=== PATIENT | male | born 1985 | race American Indian/Alaskan Native ===

== ENCOUNTER 2017-02-28 08:38 | Emergency (ER) | payer SELFPAY ==
--- NOTE | 2017-02-28 08:52 | EDM.PDOC ---
ED HPI GENERAL MEDICAL PROBLEM - General Chief Complaint: General Stated Complaint: HEMMORIODS Time Seen by Provider: 02/28/17 08:52 Source of Information: Reports: Patient, RN, RN Notes Reviewed History Limitations: Reports: No Limitations - History of Present Illness INITIAL COMMENTS - FREE TEXT/NARRATIVE: Pt presents to ER with c/o severe hemorrhoids that began bothering him yesterday. He states he lifted a couch the other day. He rates the pain a 10/10 and states he cannot have a bowel movement due to the pain. He denies fever and chills, or any other problems at this time. Onset: Gradual Duration: Getting Worse Location: Reports: Other Quality: Reports: Burning, Stabbing Severity: Severe Improves with: Reports: None Worsens with: Reports: Movement Associated Symptoms: Reports: No Other Symptoms Rectal Pain Score (Numeric/FACES): 9 - Related Data Allergies Allergy/AdvReac Type Severity Reaction Status Date / Time amoxicillin Allergy Hives Verified 07/25/15 09:59 Home Meds: Home Meds Ibuprofen 400 mg PO ASDIRECTED PRN 07/25/15 [History] Past Medical History - Past Health History Medical/Surgical History: Denies Medical/Surgical History HEENT History: Reports: None Cardiovascular History: Reports: None Respiratory History: Reports: None Gastrointestinal History: Reports: GERD Genitourinary History: Reports: None Other Musculoskeletal History: accident with neck pain Neurological History: Reports: None Psychiatric History: Reports: Addiction (alcoholism) Endocrine/Metabolic History: Reports: None Hematologic History: Reports: None Immunologic History: Reports: None Oncologic (Cancer) History: Reports: None Dermatologic History: Reports: None - Infectious Disease History Infectious Disease History: Reports: Chicken Pox - Past Surgical History Head Surgeries/Procedures: Reports: None Social & Family History - Family History Cardiac: Reports: CAD, Hypertension Psychiatric: Reports: Other (See Below) Endocrine/Metabolic: Reports: Diabetes, type II - Tobacco Use Smoking Status *Q: Current Every Day Smoker Years of Tobacco use: 12 Packs/Tins Daily: 0.5 Second Hand Smoke Exposure: No - Caffeine Use Caffeine Use: Reports: Soda - Alcohol Use Days Per Week of Alcohol Use: 7 (rare) Number of Drinks Per Day: 10 (750mls/day) Total Drinks Per Week: 70 - Recreational Drug Use Recreational Drug Use: Yes Drug Use in Last 12 Months: Yes Recreational Drug Type: Reports: Marijuana/Hashish Recreational Drug Use Frequency: Rarely - Living Situation & Occupation Living situation: Reports: , with Family Occupation: Unemployed ED ROS GENERAL - Review of Systems Review Of Systems: ROS reveals no pertinent complaints other than HPI. ED EXAM, GENERAL - Physical Exam Exam: See Below Exam Limited By: No Limitations General Appearance: Alert, WD/WN, Anxious, Moderate Distress Eye Exam: Bilateral Eye: Normal Inspection Ears: Normal External Exam, Hearing Grossly Normal Nose: Normal Inspection Throat/Mouth: Normal Inspection Head: Atraumatic, Normocephalic Neck: Normal Inspection, Full Range of Motion Respiratory/Chest: No Respiratory Distress, Lungs Clear, Normal Breath Sounds, No Accessory Muscle Use, Chest Non-Tender Cardiovascular: Normal Peripheral Pulses, Regular Rate, Rhythm, No Edema, No Gallop, No JVD, No Murmur, No Rub Peripheral Pulses: 2+: Radial (L), Radial (R) GI/Abdominal: Normal Bowel Sounds, Soft, Non-Tender (Male) Exam: Deferred Rectal (Males) Exam: Hemorrhoids (Severe protruding hemorrhoids with the beginning of ulceration with white drainage) Back Exam: Normal Inspection, Full Range of Motion Extremities: Normal Inspection, Normal Range of Motion, Normal Capillary Refill Neurological: Alert, Oriented, Normal Cognition, Normal Gait, No Motor/Sensory Deficits Psychiatric: Normal Affect, Normal Mood Skin Exam: Warm, Dry, Intact, Normal Color, No Rash Lymphatic: No Adenopathy Course - Vital Signs Last Recorded V/S: Last Vital Signs Temp 98.7 F 02/28/17 08:40 Pulse 88 02/28/17 08:40 Resp 16 02/28/17 08:40 BP 145/92 H 02/28/17 08:40 Pulse Ox 99 02/28/17 08:40 - Orders/Labs/Meds Meds: Medications Discontinued Medications Generic Name Dose Route Start Last Admin Trade Name Freq PRN Reason Stop Dose Admin Lidocaine HCl 5 ml 02/28/17 09:02 02/28/17 09:12 Xylocaine 2% Jelly TOP 02/28/17 09:03 5 ml ONETIME ONE Administration Departure - Departure Time of Disposition: 09:18 Disposition: Home, Self-Care 01 Condition: Good Clinical Impression: Hemorrhage - Discharge Information Instructions: Hemorrhoids, [id number] Forms: ED Department Discharge Additional Instructions: Over the counter Hemorrhoid pads (Tucks medicated pads), use after each bowel movement. Preparation H ointment as directed. Sitz baths frequently. Stool softeners as directed. Follow up with your primary care facility for possible surgical consult. Lidocaine 2% topical jelly to the affected area every 6 hours Drink lots of water
[2017-02-28 08:56] VITALS: BP 145/92
[2017-02-28] MEDS ORDERED: Lidocaine 2% Jelly 5 ML Tube TOP ONE (09:02)
== END 2017-02-28 09:34 | disposition home or self-care (01) ==
LOC: DL.ED 08:38
DX: K64.8 Other hemorrhoids (principal); Z88.1 Allergy status to other antibiotic agents; F17.210 Nicotine dependence, cigarettes, uncomplicated
CPT/HCPCS: 99282

== ENCOUNTER 2017-08-04 12:55 | Observation (INO) | payer MEDICAID, OTHER ==
[2017-08-04] MEDS ORDERED: LORazepam 2 MG/ML Syringe IVPUSH ONE (13:15)
[2017-08-04] MEDS ORDERED: MVI, Adult with Vitamin K 10 ML, Folic Acid 1 MG, Thiamine 100 MG in Lactated Ringers 1... IV ONE ×4 (13:15)
[2017-08-04 13:56] LABS: CHLORIDE,CL 106 mmol/L (101-111); SODIUM,NA 139 mmol/L (135-145)
--- NOTE | 2017-08-04 14:09 | EDM.PDOCBH ---
ED HPI GENERAL MEDICAL PROBLEM - General Chief Complaint: Drug or Alcohol Abuse Stated Complaint: BY AMBULANCE Time Seen by Provider: 08/04/17 13:09 Source of Information: Reports: Patient, RN, RN Notes Reviewed History Limitations: Reports: No Limitations - History of Present Illness INITIAL COMMENTS - FREE TEXT/NARRATIVE: Patient presents to ER per [facility]. Patient states he last had a drink last night 6-7 P.M. Drinks 2 gallons vodka in 1 day. Wants help to get treatment. No hallucinations. Admits to blood with stools. No bloody vomit. Quality: Reports: Ache Severity: Moderate Improves with: Reports: None Worsens with: Reports: None Associated Symptoms: Reports: No Other Symptoms Headache Pain Score (Numeric/FACES): 10 - Related Data Allergies Allergy/AdvReac Type Severity Reaction Status Date / Time amoxicillin Allergy Severe Hives Verified 08/04/17 14:48 Home Meds: Home Meds Ibuprofen 400 mg PO ASDIRECTED PRN 07/25/15 [History] Past Medical History - Past Health History Medical/Surgical History: Denies Medical/Surgical History HEENT History: Reports: None Cardiovascular History: Reports: None Respiratory History: Reports: None Gastrointestinal History: Reports: GERD Genitourinary History: Reports: None Musculoskeletal History: Reports: Other (See Below) Other Musculoskeletal History: accident with neck pain Neurological History: Reports: None Psychiatric History: Reports: Addiction, Anxiety Endocrine/Metabolic History: Reports: None Hematologic History: Reports: None Immunologic History: Reports: None Oncologic (Cancer) History: Reports: None Dermatologic History: Reports: None - Infectious Disease History Infectious Disease History: Reports: Chicken Pox - Past Surgical History Head Surgeries/Procedures: Reports: None Social & Family History - Family History Cardiac: Reports: CAD, Hypertension Psychiatric: Reports: Other (See Below) Endocrine/Metabolic: Reports: Diabetes, type II - Tobacco Use Smoking Status *Q: Light Tobacco Smoker Years of Tobacco use: 10 Packs/Tins Daily: 1 Second Hand Smoke Exposure: No - Caffeine Use Caffeine Use: Reports: Soda - Alcohol Use Days Per Week of Alcohol Use: 7 (rare) Number of Drinks Per Day: 10 (750mls/day) Total Drinks Per Week: 70 - Recreational Drug Use Recreational Drug Use: Yes Drug Use in Last 12 Months: Yes Recreational Drug Type: Reports: Marijuana/Hashish Recreational Drug Use Frequency: Socially - Living Situation & Occupation Living situation: Reports: , with Family Occupation: Unemployed ED ROS GENERAL - Review of Systems Review Of Systems: ROS reveals no pertinent complaints other than HPI. ED EXAM, BEHAVIORAL HEALTH - Physical Exam Exam: See Below Exam Limited By: No Limitations General Appearance: Anxious, Other (Shaky) Eye Exam: Bilateral Eye: Normal Inspection Ears: Normal External Exam, Normal Canal, Hearing Grossly Normal, Normal TMs Nose: Normal Inspection, Normal Mucosa, No Blood Throat/Mouth: Normal Inspection, Normal Lips, Normal Teeth, Normal Gums, Normal Oropharynx, Normal Voice, No Airway Compromise Head: Atraumatic, Normocephalic Neck: Normal Inspection, Supple, Non-Tender, Full Range of Motion Respiratory/Chest: No Respiratory Distress, Lungs Clear, Normal Breath Sounds, No Accessory Muscle Use, Chest Non-Tender Cardiovascular: Normal Peripheral Pulses, Regular Rate, Rhythm, No Edema, No Gallop, No JVD, No Murmur, No Rub GI/Abdominal: Normal Bowel Sounds, Soft, Non-Tender, No Organomegaly, No Distention, No Abnormal Bruit, No Mass (Male) Exam: Deferred Rectal (Males) Exam: Deferred Back Exam: Normal Inspection, Full Range of Motion, NT Extremities: Normal Inspection, Normal Range of Motion, Non-Tender, Normal Capillary Refill, No Pedal Edema Neurological: Alert, Normal Mood/Affect, CN II-XII Intact, Normal Cognition, Normal Gait, Normal Reflexes, No Motor/Sensory Deficits, Oriented x 3 Psychiatric: Other (anxious and shakey) Skin Exam: Warm, Dry, Intact, Normal color, No rash COURSE, BEHAVIORAL HEALTH COMP - Course Vital Signs: Last Vital Signs Temp 98.6 F 08/05/17 08:00 Pulse 87 08/05/17 08:22 Resp 20 08/05/17 08:00 BP 137/93 H 08/05/17 08:22 Pulse Ox 99 08/05/17 08:00 Orders, Labs, Meds: Active Orders 24 hr Category Date Time Status Patient Status [ADT] Routine ADT 08/04/17 14:26 Active Oxygen Therapy [RC] PRN Care 08/04/17 14:26 Active Up ad Mabel [RC] ASDIRECTED Care 08/04/17 14:25 Active VTE/DVT Education [RC] PER UNIT ROUTINE Care 08/04/17 14:26 Active Regular Diet [DIET] Diet 08/04/17 Lunch Active Ondansetron [Zofran] Med 08/04/17 14:25 Active 4 mg IVPUSH Q6H PRN Pantoprazole [ProTONIX IV] Med 08/04/17 15:15 Active 40 mg IVPUSH Q12HR Resuscitation Status Routine Resus Stat 08/04/17 14:25 Ordered Medication Orders Atenolol (Tenormin) 25 mg PO DAILY [facility] Last Admin: 08/05/17 08:22 Dose: 25 mg Admin: 08/04/17 17:57 Dose: 25 mg Enoxaparin Sodium (Lovenox) 40 mg SUBCUT DAILY [facility] Last Admin: 08/05/17 11:35 Dose: 40 mg Potassium Chloride/Sodium Chloride (Normal Saline With 20 Meq Kcl) 1,000 mls @ 100 mls/hr IV ASDIRECTED JEFF Lorazepam (Ativan) 2 mg IVPUSH ASDIRECTED PRN; Protocol PRN Reason: Withdrawal Symptoms Last Admin: 08/05/17 11:44 Dose: 1 mg Admin: 08/05/17 08:22 Dose: 2 mg Admin: 08/05/17 04:36 Dose: 1 mg Admin: 08/05/17 02:17 Dose: 1 mg Admin: 08/04/17 23:41 Dose: 1 mg Admin: 08/04/17 22:05 Dose: 1 mg Admin: 08/04/17 18:27 Dose: 2 mg Admin: 08/04/17 17:28 Dose: 2 mg Admin: 08/04/17 15:53 Dose: 1 mg Miscellaneous Information (Check Patch) 1 ea TRDERM DAILY [facility] Last Admin: 08/05/17 08:23 Dose: 1 ea Nicotine (Habitrol) 21 mg TRDERM DAILY [facility] Last Admin: 08/05/17 08:21 Dose: 21 mg Ondansetron HCl (Zofran) 4 mg IVPUSH Q6H PRN PRN Reason: Nausea/Vomiting Oxycodone HCl (Oxycodone) 5 mg PO Q8H PRN PRN Reason: Pain Last Admin: 08/04/17 15:38 Dose: 5 mg Pantoprazole Sodium (Protonix Iv) 40 mg IVPUSH Q12HR [facility] Last Admin: 08/05/17 08:22 Dose: 40 mg Admin: 08/04/17 21:30 Dose: 40 mg Admin: 08/04/17 15:38 Dose: 40 mg Laboratory Tests 08/04/17 08/04/17 08/04/17 Range/Units 13:27 13:27 13:29 WBC 4.3 L (5.0-10.0) 10^3/uL RBC 4.96 (4.6-6.2) 10^6/uL Hgb 14.9 D (14.0-18.0) g/dL Hct 43.7 (40.0-54.0) % MCV 88.1 D (80-100) fL MCH 30.0 (27.0-34.0) pg MCHC 34.1 (33.0-35.0) g/dL Plt Count 168 (150-450) 10^3/uL Neut % (Auto) 70.5 (42.2-75.2) % Lymph % (Auto) 15.0 L (20.5-50.1) % Norman % (Auto) 12.4 H (2-8) % Eos % (Auto) 1.4 (1.0-3.0) % Baso % (Auto) 0.7 (0.0-1.0) % Sodium (135-145) mmol/L Potassium (3.6-5.0) mmol/L Chloride (101-111) mmol/L Carbon Dioxide (21.0-31.0) mmol/L Anion Gap BUN (7-18) mg/dL Creatinine (0.6-1.3) mg/dL Est Cr Clr Drug Dosing mL/min Estimated GFR (MDRD) BUN/Creatinine Ratio Glucose (74-105) mg/dL Calcium (8.4-10.2) mg/dl Magnesium (1.8-2.5) mg/dL Total Bilirubin (0.2-1.0) mg/dL AST (10-42) IU/L ALT (10-60) IU/L Alkaline Phosphatase (42-121) IU/L Total Protein (6.7-8.2) g/dl Albumin (3.2-5.5) g/dl Globulin Albumin/Globulin Ratio Amylase (28-100) U/L Lipase (22-51) U/L Urine Color Blossom (YELLOW) Urine Appearance Slightly cloudy (CLEAR) Urine pH 6.0 (5.0-9.0) Ur Specific [place] 1.025 (1.005-1.030) Urine Protein 100 H (NEGATIVE) Urine Glucose (UA) Negative (NEGATIVE) Urine Ketones 80 H (NEGATIVE) Urine Occult Blood Negative (NEGATIVE) Urine Nitrite Negative (NEGATIVE) Urine Bilirubin Small H (NEGATIVE) Urine Urobilinogen 0.2 (0.2-1.0) mg/dL Ur Leukocyte Esterase Negative (NEGATIVE) Urine RBC Not seen /HPF Urine WBC 0-5 (0-5/HPF) /HPF Ur Epithelial Cells Rare /HPF Urine Bacteria Not seen (0-FEW/HPF) /HPF Urine Mucus Many H /LPF Urine Opiates Screen Negative (NEGATIVE) Ur Oxycodone Screen Negative (NEGATIVE) Urine Methadone Screen Negative (NEGATIVE) Ur Barbiturates Screen Negative (NEGATIVE) U Tricyclic Antidepress Negative (NEGATIVE) Ur Phencyclidine Scrn Negative (NEGATIVE) Ur Amphetamine Screen Negative (NEGATIVE) U Methamphetamines Scrn Negative (NEGATIVE) Urine MDMA Screen Negative (NEGATIVE) U Benzodiazepines Scrn Negative (NEGATIVE) Urine Cocaine Screen Negative (NEGATIVE) U Marijuana (THC) Screen Positive H (NEGATIVE) Ethyl Alcohol mg/dL 08/04/17 Range/Units 13:29 WBC (5.0-10.0) 10^3/uL RBC (4.6-6.2) 10^6/uL Hgb (14.0-18.0) g/dL Hct (40.0-54.0) % MCV (80-100) fL MCH (27.0-34.0) pg MCHC (33.0-35.0) g/dL Plt Count (150-450) 10^3/uL Neut % (Auto) (42.2-75.2) % Lymph % (Auto) (20.5-50.1) % Norman % (Auto) (2-8) % Eos % (Auto) (1.0-3.0) % Baso % (Auto) (0.0-1.0) % Sodium 139 (135-145) mmol/L Potassium 3.4 L (3.6-5.0) mmol/L Chloride 106 (101-111) mmol/L Carbon Dioxide 20.0 L (21.0-31.0) mmol/L Anion Gap 16.4 BUN 9 (7-18) mg/dL Creatinine 0.8 (0.6-1.3) mg/dL Est Cr Clr Drug Dosing 152.70 mL/min Estimated GFR (MDRD) > 60 BUN/Creatinine Ratio 11.25 Glucose 98 (74-105) mg/dL Calcium 8.6 (8.4-10.2) mg/dl Magnesium 1.5 L (1.8-2.5) mg/dL Total Bilirubin 0.8 (0.2-1.0) mg/dL AST 157 H (10-42) IU/L ALT 116 H (10-60) IU/L Alkaline Phosphatase 59 (42-121) IU/L Total Protein 7.6 (6.7-8.2) g/dl Albumin 4.0 (3.2-5.5) g/dl Globulin 3.6 Albumin/Globulin Ratio 1.11 Amylase 46 (28-100) U/L Lipase 17 L (22-51) U/L Urine Color (YELLOW) Urine Appearance (CLEAR) Urine pH (5.0-9.0) Ur Specific Mills (1.005-1.030) Urine Protein (NEGATIVE) Urine Glucose (UA) (NEGATIVE) Urine Ketones (NEGATIVE) Urine Occult Blood (NEGATIVE) Urine Nitrite (NEGATIVE) Urine Bilirubin (NEGATIVE) Urine Urobilinogen (0.2-1.0) mg/dL Ur Leukocyte Esterase (NEGATIVE) Urine RBC /HPF Urine WBC (0-5/HPF) /HPF Ur Epithelial Cells /HPF Urine Bacteria (0-FEW/HPF) /HPF Urine Mucus /LPF Urine Opiates Screen (NEGATIVE) Ur Oxycodone Screen (NEGATIVE) Urine Methadone Screen (NEGATIVE) Ur Barbiturates Screen (NEGATIVE) U Tricyclic Antidepress (NEGATIVE) Ur Phencyclidine Scrn (NEGATIVE) Ur Amphetamine Screen (NEGATIVE) U Methamphetamines Scrn (NEGATIVE) Urine MDMA Screen (NEGATIVE) U Benzodiazepines Scrn (NEGATIVE) Urine Cocaine Screen (NEGATIVE) U Marijuana (THC) Screen (NEGATIVE) Ethyl Alcohol 55 mg/dL Medications Generic Name Dose Route Start Last Admin Trade Name Freq PRN Reason Stop Dose Admin Atenolol 25 mg 08/04/17 16:00 08/05/17 08:22 Tenormin PO 25 mg DAILY JEFF Administration Enoxaparin Sodium 40 mg 08/05/17 10:00 08/05/17 11:35 Lovenox SUBCUT 40 mg DAILY JEFF Administration Potassium Chloride/Sodium Chloride 1,000 mls @ 100 mls/hr 08/05/17 10:00 Normal Saline With 20 Meq Kcl IV ASDIRECTED JEFF Lorazepam 2 mg 08/04/17 15:03 08/05/17 11:44 Ativan IVPUSH 1 mg ASDIRECTED PRN Administration Withdrawal Symptoms Protocol Miscellaneous Information 1 ea 08/05/17 09:00 08/05/17 08:23 Check Patch TRDERM 1 ea DAILY JEFF Administration Nicotine 21 mg 08/05/17 09:00 08/05/17 08:21 Habitrol TRDERM 21 mg DAILY JEFF Administration Ondansetron HCl 4 mg 08/04/17 14:25 Zofran IVPUSH Q6H PRN Nausea/Vomiting Oxycodone HCl 5 mg 08/04/17 15:01 08/04/17 15:38 Oxycodone PO 5 mg Q8H PRN Administration Pain Pantoprazole Sodium 40 mg 08/04/17 15:15 08/05/17 08:22 Protonix Iv IVPUSH 40 mg Q12HR JEFF Administration Discontinued Medications Generic Name Dose Route Start Last Admin Trade Name Freq PRN Reason Stop Dose Admin Multivitamins/Minerals 10 ml/ 1,011.2 mls @ 999 mls/hr 08/04/17 13:15 13:38 Folic Acid 1 mg/ Thiamine HCl IV 08/04/17 14:15 999 mls/hr 100 mg/ Lactated Ringer's ONETIME ONE Administration Sodium Chloride 1,000 mls @ 125 mls/hr 08/04/17 14:30 08/05/17 09:32 Normal Saline IV 100 mls/hr ASDIRECTED JEFF Infusion Magnesium Sulfate 2 gm/ Premix 50 mls @ 25 mls/hr 08/04/17 17:31 08/04/17 17: 58 IV 08/04/17 19:30 25 mls/hr ONETIME ONE Administration Potassium Chloride 20 meq/ 100 mls @ 50 mls/hr 08/04/17 17:31 08/04/17 23:50 Premix IV 08/04/17 19:30 Not Given ONETIME ONE Potassium Chloride 10 meq/ 0 mls @ 100 mls/hr 08/04/17 17:37 08/04/17 23:06 Premix IV 08/04/17 18:38 Not Given Q1H JEFF Potassium Chloride 10 meq/ 100 mls @ 100 mls/hr 08/04/17 23:00 08/05/17 00:50 Premix IV 08/04/17 23:59 Infused ONETIME ONE Infusion Lorazepam 1 mg 08/04/17 13:15 08/04/17 13:36 Ativan IVPUSH 08/04/17 13:16 1 mg ONETIME ONE Administration Lorazepam 1 mg 08/04/17 14:32 Ativan IVPUSH Q2H PRN Tremors and anxiety Miscellaneous Information 1 ea 08/05/17 09:00 Check Patch TRDERM DAILY JEFF Miscellaneous Information 1 ea 08/04/17 21:00 08/04/17 21:52 Check Patch TRDERM 1 ea BEDTIME JEFF Administration Nicotine 21 mg 08/05/17 09:00 Habitrol TRDERM DAILY JEFF Nicotine 21 mg 08/04/17 21:00 08/04/17 21:46 Habitrol TRDERM 21 mg BEDTIME JEFF Administration Guiac Stool: NEGATIVE Departure - Departure Time of Disposition: 14:25 Disposition: Refer to Observation Condition: Fair Clinical Impression: Alcohol abuse Alcohol withdrawal Qualifiers: Complication of substance-induced condition: uncomplicated Qualified Code(s): F10.230 - Alcohol dependence with withdrawal, uncomplicated - Discharge Information
[2017-08-04] MEDS ORDERED: LORazepam 2 MG/ML Syringe IVPUSH PRN (14:32)
[2017-08-04] MEDS ORDERED: oxyCODONE 5 MG Tab PO PRN (15:01)
--- NOTE | 2017-08-04 15:35 | CT ---
Medical history: 32-year-old 230 pound "detoxing" (EtOH) male smoker with headache. Scan technique: Volume acquisition of data unenhanced CT scan of the head and brain obtained with pat ient lying supine on the Siemens multi slice scanner [place], [place]. All data archived in the PACS system for storage and study (bone/brain windows). Interpretation: Negative exam. No sign of new intracranial abnormality when compared to previous exam 11 November 2010. Uniformly thick bony calvarium without sign of skull fracture, underlying brain contusion or epidural /subdural hematoma. Symmetric white-white matter pattern with underlying mirror-image normal ventricular system. No focal areas of ischemic infarct or signs of acute intracerebral/intraventricular/subarachnoid bleed. Cerebellum and brainstem unremarkable. Physiologic midline pineal and symmetric choroid plexus calcif ications.
[2017-08-04] MEDS: Pantoprazole 40 MG Vial IVPUSH SCH ×2 (15:38→21:30)
[2017-08-04] MEDS: Sodium Chloride 0.9% 1,000 ML IV SCH ×2 (15:41→23:31)
[2017-08-04] MEDS: LORazepam 2 MG/ML Syringe IVPUSH PRN ×5 (15:53→23:41)
--- NOTE | 2017-08-04 17:28 | PCM.HP ---
H&P History of Present Illness - General Date of Service: 08/04/17 Admit Problem/Dx: Admission Diagnosis/Problem Admission Diagnosis/Problem Alcohol abuse with intoxication History Limitations: Reports: No Limitations - History of Present Illness Initial Comments - Free Text/Narative: The patient presented with complaint of tremors and anxiety. He is a chronic alcoholic for several years but recently increased the amount of alcohol intake. He drinks more than 2 gallons of vodka daily. He expresses intention to quit alcohol use. Indicates that he has had intermittent nausea. Also complained of vomiting and epigastric pain. No fever or chills right) no cough no wheezing. He does smoke. Denies illicit drug use. Last alcohol use was yesterday evening about 6 PM. His tremors started feel as after discontinuation of alcohol use Onset of Symptoms: Reports: Today Improves with: Reports: None Worsens with: Reports: None Associated Symptoms: Reports: Loss of Appetite, Malaise Headache Pain Score (Numeric/FACES): 10 - Related Data Allergies/Adverse Reactions: Allergies Allergy/AdvReac Type Severity Reaction Status Date / Time amoxicillin Allergy Severe Hives Verified 08/04/17 14:48 Home Medications: Home Meds Ibuprofen 400 mg PO ASDIRECTED PRN 07/25/15 [History] Past Medical History - Past Health History Medical/Surgical History: Denies Medical/Surgical History HEENT History: Reports: None Cardiovascular History: Reports: None Respiratory History: Reports: None Gastrointestinal History: Reports: GERD Genitourinary History: Reports: None Musculoskeletal History: Reports: Other (See Below) Other Musculoskeletal History: accident with neck pain Neurological History: Reports: None Psychiatric History: Reports: Addiction Endocrine/Metabolic History: Reports: None Hematologic History: Reports: None Immunologic History: Reports: None Oncologic (Cancer) History: Reports: None Dermatologic History: Reports: None - Infectious Disease History Infectious Disease History: Reports: C-Difficile - Past Surgical History Head Surgeries/Procedures: Reports: None Social & Family History - Family History Family Medical History: Noncontributory Cardiac: Reports: CAD, Hypertension Psychiatric: Reports: Other (See Below) Endocrine/Metabolic: Reports: Diabetes, type II - Tobacco Use Smoking Status *Q: Light Tobacco Smoker Years of Tobacco use: 18 Packs/Tins Daily: 2 Second Hand Smoke Exposure: No - Caffeine Use Caffeine Use: Reports: None - Alcohol Use Days Per Week of Alcohol Use: 7 Number of Drinks Per Day: 10 Total Drinks Per Week: 70 Date of Last Drink: 08/03/17 Time of Last Drink: 19:00 - Recreational Drug Use Recreational Drug Use: Yes Drug Use in Last 12 Months: Yes Recreational Drug Type: Reports: Marijuana/Hashish Recreational Drug Use Frequency: Daily - Living Situation & Occupation Living situation: Reports: , with Family Occupation: Unemployed H&P Review of Systems - Review of Systems: Review Of Systems: See Below General: Reports: No Symptoms, Weakness HEENT: Reports: No Symptoms Pulmonary: Reports: No Symptoms Cardiovascular: Reports: No Symptoms Gastrointestinal: Reports: Abdominal Pain Musculoskeletal: Reports: No Symptoms Skin: Reports: No Symptoms Psychiatric: Reports: Depression Neurological: Reports: No Symptoms Hematologic/Lymphatic: Reports: No Symptoms Exam - Exam Exam: See Below - Vital Signs Vital Signs: Last Vital Signs Temp 37.2 C 08/04/17 14:26 Pulse 78 08/04/17 14:26 Resp 18 08/04/17 14:26 BP 145/102 H 08/04/17 14:26 Pulse Ox 98 08/04/17 14:26 Weight: 104.689 kg - Exam General: Alert, Oriented, Cooperative HEENT: Conjunctiva Clear Neck: Supple Lungs: Clear to Auscultation Cardiovascular: Regular Rate, Normal S1, Normal S2 GI/Abdominal Exam: Soft, Tender (Male) Exam: No Hernia, Normal Inspection, Normal Prostate, Circumcised Back Exam: Normal Inspection, Full Range of Motion, NT Extremities: Normal Inspection, Normal Range of Motion, Non-Tender, No Pedal Edema, Normal Capillary Refill Neuro Extensive - Mental Status: Other (tremors ) - Patient Data Result Diagrams: 08/04/17 13:29 08/04/17 13:29 *Q Meaningful Use (ADM) - VTE *Q VTE Criteria *Q: - Stroke *Q Stroke Criteria *Q: - AMI *Q AMI Criteria *Q: Problem List Initiated/Reviewed/Updated: Yes Orders Last 24hrs: Active Orders 24 hr Category Date Time Status CIWAA Assessment [RC] Q1H Care 08/04/17 15:01 Active Atenolol [Tenormin] Med 08/04/17 16:00 Ordered 25 mg PO DAILY LORazepam [Ativan] Med 08/04/17 15:03 Active 2 mg IVPUSH ASDIRECTED PRN oxyCODONE Med 08/04/17 15:01 Active 5 mg PO Q8H PRN Medication Orders Atenolol (Tenormin) 25 mg PO DAILY JE[facility] Sodium Chloride (Normal Saline) 1,000 mls @ 125 mls/hr IV ASDIRECTED JEFF Last Admin: 08/04/17 15:41 Dose: 125 mls/hr Lorazepam (Ativan) 2 mg IVPUSH ASDIRECTED PRN; Protocol PRN Reason: Withdrawal Symptoms Last Admin: 08/04/17 15:53 Dose: 1 mg Ondansetron HCl (Zofran) 4 mg IVPUSH Q6H PRN PRN Reason: Nausea/Vomiting Oxycodone HCl (Oxycodone) 5 mg PO Q8H PRN PRN Reason: Pain Last Admin: 08/04/17 15:38 Dose: 5 mg Pantoprazole Sodium (Protonix Iv) 40 mg IVPUSH Q12HR JE[facility] Last Admin: 08/04/17 15:38 Dose: 40 mg Assessment/Plan Comment:: #. Alcohol abuse with intoxication Patient has been a chronic alcoholic. Recently increased amount of alcohol intake about 3-4 weeks ago. Drinks more than 2 gallons of vodka daily. Expresses intention to quit History and also at this point #. Alcohol withdrawal while The patient is tremulous and anxious His blood pressure is also elevated likely due to alcohol withdrawal #. Elevated blood pressure He has no prior history of hypertension This is likely because of alcohol withdrawal #. Hypokalemia Likely due to alcohol abuse and decreased oral intake #. Hypomagnesemia Likely due to decreased oral intake. Related to alcohol abuse #. Tobacco use disorder She is an active smoker. Plan: Admit patient to medical floor Comments alcohol withdrawal protocol Replace potassium deficit Replace magnesium deficit Start patient on atenolol 25 mg daily Intravenous fluids going at 125 mL an hour Close hemodynamic monitoring Start patient on nicotine patch 21 mg daily Patient's medical chart was reviewed. Discussed with the emergency room provide
[2017-08-04] MEDS ORDERED: Magnesium Sulfate/Water 2 GM in Premix Bag 1 BAG IV ONE (17:31)
[2017-08-04] MEDS ORDERED: Potassium Chloride 20 MEQ in Premix Bag 1 BAG IV ONE (17:31)
[2017-08-04] MEDS: Atenolol 25 MG Tab PO SCH (17:57)
[2017-08-04] MEDS: Potassium Chloride 10 MEQ in Premix Bag 1 BAG IV SCH ×2 (20:25→23:06)
[2017-08-04] MEDS ORDERED: Nicotine 21 MG/24 Hr Patch TRDERM SCH (21:00)
[2017-08-04] MEDS ORDERED: Check Patch **NICOTINE TRDERM SCH (21:00)
[2017-08-04] MEDS ORDERED: Potassium Chloride 10 MEQ in Premix Bag 1 BAG IV ONE (23:00)
[2017-08-05] MEDS: LORazepam 2 MG/ML Syringe IVPUSH PRN ×7 (02:17→22:57)
[2017-08-05 06:23] LABS: CHLORIDE,CL 107 mmol/L (101-111); SODIUM,NA 139 mmol/L (135-145)
[2017-08-05] MEDS: Sodium Chloride 0.9% 1,000 ML IV SCH (07:42)
[2017-08-05] MEDS: Nicotine 21 MG/24 Hr Patch TRDERM SCH (08:21)
[2017-08-05] MEDS: Atenolol 25 MG Tab PO SCH (08:22)
[2017-08-05] MEDS: Pantoprazole 40 MG Vial IVPUSH SCH ×2 (08:22→20:36)
[2017-08-05] MEDS: Check Patch **NICOTINE TRDERM SCH (08:23)
[2017-08-05] MEDS ORDERED: Check Patch **NICOTINE TRDERM SCH (09:00)
[2017-08-05] MEDS ORDERED: Nicotine 21 MG/24 Hr Patch TRDERM SCH (09:00)
--- NOTE | 2017-08-05 09:56 | PCM.PN ---
- General Info Date of Service: 08/05/17 Admission Dx/Problem (Free Text): Admission Diagnosis/Problem Admission Diagnosis/Problem Alcohol abuse with intoxication Subjective Update: Today the patient indicates that he still feels anxious Still tremulous Was medicated with lorazepam 4 times over the past 12 hours Still has some discomfort at epigastrium. Complains of diarrhea. This has been intermittent going on for about 3 weeks. No history of antibiotic exposure - Review of Systems General: Reports: Weakness Pulmonary: Reports: No Symptoms Cardiovascular: Reports: No Symptoms - Patient Data Vitals - Most Recent: Last Vital Signs Temp 37.0 C 08/05/17 08:00 Pulse 87 08/05/17 08:22 Resp 20 08/05/17 08:00 BP 137/93 H 08/05/17 08:22 Pulse Ox 99 08/05/17 08:00 Weight - Most Recent: 104.689 kg I&O - Last 24 Hours: Intake & Output 08/04/17 08/05/17 08/05/17 22:59 06:59 14:59 Intake Total 650 2331 Output Total 400 Balance 650 1931 Lab Results Last 24 Hours: Laboratory Results - last 24 hr 08/05/17 08/05/17 08/05/17 Range/Units 05:55 05:55 05:55 WBC 3.4 L (5.0-10.0) 10^3/uL RBC 4.53 L (4.6-6.2) 10^6/uL Hgb 13.7 L (14.0-18.0) g/dL Hct 41.1 (40.0-54.0) % MCV 90.7 (80-100) fL MCH 30.2 (27.0-34.0) pg MCHC 33.3 (33.0-35.0) g/dL Plt Count 165 (150-450) 10^3/uL Sodium 139 (135-145) mmol/L Potassium 3.6 (3.6-5.0) mmol/L Chloride 107 (101-111) mmol/L Carbon Dioxide 22.0 (21.0-31.0) mmol/L Anion Gap 13.6 BUN 12 (7-18) mg/dL Creatinine 0.9 (0.6-1.3) mg/dL Est Cr Clr Drug Dosing 135.73 mL/min Estimated GFR (MDRD) > 60 Glucose 91 (74-105) mg/dL Calcium 8.4 (8.4-10.2) mg/dl Phosphorus 3.4 (2.5-4.6) mg/dL Magnesium 1.9 (1.8-2.5) mg/dL Total Bilirubin 0.9 (0.2-1.0) mg/dL Direct Bilirubin 0.2 (0.0-0.2) mg/dL Indirect Bilirubin 0.7 AST 92 H (10-42) IU/L ALT 87 H (10-60) IU/L Alkaline Phosphatase 48 (42-121) IU/L Total Protein 6.5 L (6.7-8.2) g/dl Albumin 3.4 (3.2-5.5) g/dl Globulin 3.1 Albumin/Globulin Ratio 1.10 Med Orders - Current: Current Medications Atenolol (Tenormin) 25 mg PO DAILY [facility] Last Admin: 08/05/17 08:22 Dose: 25 mg Sodium Chloride (Normal Saline) 1,000 mls @ 125 mls/hr IV ASDIRECTED JEFF Last Infusion: 08/05/17 09:32 Dose: 100 mls/hr Lorazepam (Ativan) 2 mg IVPUSH ASDIRECTED PRN; Protocol PRN Reason: Withdrawal Symptoms Last Admin: 08/05/17 08:22 Dose: 2 mg Miscellaneous Information (Check Patch) 1 ea TRDERM DAILY [facility] Last Admin: 08/05/17 08:23 Dose: 1 ea Nicotine (Habitrol) 21 mg TRDERM DAILY [facility] Last Admin: 08/05/17 08:21 Dose: 21 mg Ondansetron HCl (Zofran) 4 mg IVPUSH Q6H PRN PRN Reason: Nausea/Vomiting Oxycodone HCl (Oxycodone) 5 mg PO Q8H PRN PRN Reason: Pain Last Admin: 08/04/17 15:38 Dose: 5 mg Pantoprazole Sodium (Protonix Iv) 40 mg IVPUSH Q12HR [facility] Last Admin: 08/05/17 08:22 Dose: 40 mg Discontinued Medications Multivitamins/Minerals 10 ml/Folic Acid 1 mg/ Thiamine HCl 100 mg/ Lactated Ringer's 1,011.2 mls @ 999 mls/hr IV ONETIME ONE Stop: 08/04/17 14:15 Last Admin: 08/04/17 13:38 Dose: 999 mls/hr Magnesium Sulfate 2 gm/ Premix 50 mls @ 25 mls/hr IV ONETIME ONE Stop: 08/04/17 19:30 Last Admin: 08/04/17 17:58 Dose: 25 mls/hr Potassium Chloride 20 meq/ (Premix) 100 mls @ 50 mls/hr IV ONETIME ONE Stop: 08/04/17 19:30 Last Admin: 08/04/17 23:50 Dose: Not Given Potassium Chloride 10 meq/ (Premix) 0 mls @ 100 mls/hr IV Q1H JEFF Stop: 08/04/17 18:38 Last Admin: 08/04/17 23:06 Dose: Not Given Potassium Chloride 10 meq/ (Premix) 100 mls @ 100 mls/hr IV ONETIME ONE Stop: 08/04/17 23:59 Last Infusion: 08/05/17 00:50 Dose: Infused Lorazepam (Ativan) 1 mg IVPUSH ONETIME ONE Stop: 08/04/17 13:16 Last Admin: 08/04/17 13:36 Dose: 1 mg Lorazepam (Ativan) 1 mg IVPUSH Q2H PRN PRN Reason: Tremors and anxiety Miscellaneous Information (Check Patch) 1 ea TRDERM DAILY JEFF Miscellaneous Information (Check Patch) 1 ea TRDERM BEDTIME [facility] Last Admin: 08/04/17 21:52 Dose: 1 ea Nicotine (Habitrol) 21 mg TRDERM DAILY [facility] Nicotine (Habitrol) 21 mg TRDERM BEDTIME [facility] Last Admin: 08/04/17 21:46 Dose: 21 mg - Exam General: Alert, Oriented Neck: Supple Lungs: Clear to Auscultation, Normal Respiratory Effort Cardiovascular: Regular Rate, Regular Rhythm GI/Abdominal Exam: Soft, No Distention, No Mass Extremities: Normal Inspection - Problem List Review Problem List Initiated/Reviewed/Updated: Yes - My Orders Last 24 Hours: My Active Orders 08/04/17 15:01 CIWAA Assessment [RC] Q1H oxyCODONE 5 mg PO Q8H PRN 08/04/17 15:03 LORazepam [Ativan] 2 mg IVPUSH ASDIRECTED PRN 08/04/17 16:00 Atenolol [Tenormin] 25 mg PO DAILY 08/05/17 09:00 Check Patch 1 ea TRDERM DAILY Nicotine [Habitrol] 21 mg TRDERM DAILY - Plan Plan:: #. Alcohol abuse with intoxication Patient has been a chronic alcoholic. Recently increased amount of alcohol intake about 3-4 weeks ago. Drinks more than 2 gallons of vodka daily. Expresses intention to quit #. Alcohol withdrawal while The patient is tremulous and anxious His blood pressure is also elevated likely due to alcohol withdrawal #. Elevated blood pressure He has no prior history of hypertension This is likely because of alcohol withdrawal #. Hypokalemia Likely due to alcohol abuse and decreased oral intake Replaced #. Hypomagnesemia Likely due to decreased oral intake. Related to alcohol abuse Replaced #. Tobacco use disorder She is an active smoker. #. Diarrhea Possibly due to chronic pancreatitis Serum lipase was normal Will like to rule out C. difficile colitis Plan: Patient is still tremulous Continue lorazepam Reduce intravenous fluid to 100 mL an hour Send stool for C. difficile toxin I did send sample for liver function test. Liver enzymes I improving I started the patient on nicotine patch Patient's medical chart was reviewed. Discussed with the emergency room provide
[2017-08-05] MEDS: Enoxaparin 40 MG/0.4 ML Syringe SUBCUT SCH (11:35)
[2017-08-05] MEDS: NS + KCl 20mEq/L 1,000 ML IV SCH (17:15)
[2017-08-05] MEDS: Ondansetron 4 MG/2 ML SDV IVPUSH PRN (19:15)
[2017-08-05] MEDS ORDERED: Atenolol 25 MG Tab PO ONE (19:32)
[2017-08-06] MEDS: LORazepam 2 MG/ML Syringe IVPUSH PRN ×8 (02:56→23:02)
[2017-08-06] MEDS: NS + KCl 20mEq/L 1,000 ML IV SCH (02:59)
[2017-08-06] MEDS: Ondansetron 4 MG/2 ML SDV IVPUSH PRN ×2 (04:44→20:10)
[2017-08-06] MEDS: Atenolol 25 MG Tab PO SCH (07:41)
[2017-08-06] MEDS ORDERED: amLODIPine 5 MG Tab PO SCH ×2 (09:00→16:00)
[2017-08-06] MEDS: Nicotine 21 MG/24 Hr Patch TRDERM SCH (09:18)
[2017-08-06] MEDS: Enoxaparin 40 MG/0.4 ML Syringe SUBCUT SCH (09:20)
[2017-08-06] MEDS: Pantoprazole 40 MG Vial IVPUSH SCH (09:20)
--- NOTE | 2017-08-06 09:29 | PCM.PN ---
- General Info Date of Service: 08/06/17 Admission Dx/Problem (Free Text): Admission Diagnosis/Problem Admission Diagnosis/Problem Alcohol abuse with intoxication Subjective Update: the patient is still tremulous Still diaphoretic His blood pressure has been significantly elevated Was given increased doses of lorazepam and that seemed to help - Review of Systems General: Reports: Weakness Pulmonary: Reports: No Symptoms Cardiovascular: Reports: No Symptoms Gastrointestinal: Reports: No Symptoms Neurological: Reports: Weakness - Patient Data Vitals - Most Recent: Last Vital Signs Temp 37.2 C 08/06/17 07:53 Pulse 63 08/06/17 07:53 Resp 20 08/06/17 07:53 BP 149/109 H 08/06/17 07:53 Pulse Ox 100 08/06/17 07:53 Weight - Most Recent: 104.689 kg I&O - Last 24 Hours: Intake & Output 08/05/17 08/06/17 08/06/17 22:59 06:59 14:59 Intake Total 5019 Output Total 700 Balance -700 5019 Med Orders - Current: Current Medications Atenolol (Tenormin) 50 mg PO DAILY [facility] Enoxaparin Sodium (Lovenox) 40 mg SUBCUT DAILY [facility] Last Admin: 08/05/17 11:35 Dose: 40 mg Potassium Chloride/Sodium Chloride (Normal Saline With 20 Meq Kcl) 1,000 mls @ 100 mls/hr IV ASDIRECTED JEFF Last Admin: 08/06/17 02:59 Dose: 100 mls/hr Lorazepam (Ativan) 2 mg IVPUSH ASDIRECTED PRN; Protocol PRN Reason: Withdrawal Symptoms Last Admin: 08/06/17 04:47 Dose: 2 mg Miscellaneous Information (Check Patch) 1 ea TRDERM DAILY [facility] Last Admin: 08/05/17 08:23 Dose: 1 ea Nicotine (Habitrol) 21 mg TRDERM DAILY [facility] Last Admin: 08/05/17 08:21 Dose: 21 mg Ondansetron HCl (Zofran) 4 mg IVPUSH Q6H PRN PRN Reason: Nausea/Vomiting Last Admin: 08/06/17 04:44 Dose: 4 mg Oxycodone HCl (Oxycodone) 5 mg PO Q8H PRN PRN Reason: Pain Last Admin: 08/04/17 15:38 Dose: 5 mg Pantoprazole Sodium (Protonix Iv) 40 mg IVPUSH Q12HR [facility] Last Admin: 08/05/17 20:36 Dose: 40 mg Discontinued Medications Atenolol (Tenormin) 25 mg PO DAILY [facility] Last Admin: 08/06/17 07:41 Dose: 25 mg Atenolol (Tenormin) 25 mg PO ONETIME ONE Stop: 08/05/17 19:33 Last Admin: 08/05/17 19:50 Dose: 25 mg Multivitamins/Minerals 10 ml/Folic Acid 1 mg/ Thiamine HCl 100 mg/ Lactated Ringer's 1,011.2 mls @ 999 mls/hr IV ONETIME ONE Stop: 08/04/17 14:15 Last Admin: 08/04/17 13:38 Dose: 999 mls/hr Sodium Chloride (Normal Saline) 1,000 mls @ 125 mls/hr IV ASDIRECTED [facility] Last Infusion: 08/05/17 09:32 Dose: 100 mls/hr Magnesium Sulfate 2 gm/ Premix 50 mls @ 25 mls/hr IV ONETIME ONE Stop: 08/04/17 19:30 Last Admin: 08/04/17 17:58 Dose: 25 mls/hr Potassium Chloride 20 meq/ (Premix) 100 mls @ 50 mls/hr IV ONETIME ONE Stop: 08/04/17 19:30 Last Admin: 08/04/17 23:50 Dose: Not Given Potassium Chloride 10 meq/ (Premix) 0 mls @ 100 mls/hr IV Q1H JEFF Stop: 08/04/17 18:38 Last Admin: 08/04/17 23:06 Dose: Not Given Potassium Chloride 10 meq/ (Premix) 100 mls @ 100 mls/hr IV ONETIME ONE Stop: 08/04/17 23:59 Last Infusion: 08/05/17 00:50 Dose: Infused Lorazepam (Ativan) 1 mg IVPUSH ONETIME ONE Stop: 08/04/17 13:16 Last Admin: 08/04/17 13:36 Dose: 1 mg Lorazepam (Ativan) 1 mg IVPUSH Q2H PRN PRN Reason: Tremors and anxiety Miscellaneous Information (Check Patch) 1 ea TRDERM DAILY [facility] Miscellaneous Information (Check Patch) 1 ea TRDERM BEDTIME [facility] Last Admin: 08/04/17 21:52 Dose: 1 ea Nicotine (Habitrol) 21 mg TRDERM DAILY [facility] Nicotine (Habitrol) 21 mg TRDERM BEDTIME [facility] Last Admin: 08/04/17 21:46 Dose: 21 mg - Exam General: Alert, Oriented Lungs: Clear to Auscultation Cardiovascular: Regular Rate, Regular Rhythm GI/Abdominal Exam: Soft, Non-Tender Psy/Mental Status: Anxious - Problem List Review Problem List Initiated/Reviewed/Updated: Yes - My Orders Last 24 Hours: My Active Orders 08/05/17 09:00 Check Patch 1 ea TRDERM DAILY Nicotine [Habitrol] 21 mg TRDERM DAILY 08/05/17 10:00 Enoxaparin [Lovenox] 40 mg SUBCUT DAILY NS + KCl 20mEq/L [Normal Saline with 20 mEq KCl] 1,000 ml IV ASDIRECTED 08/05/17 13:30 C DIFFICILE TOXIN BY PCR [MREF] Routine 08/05/17 19:34 CIWAA Assessment [RC] Q4H 08/06/17 09:00 Atenolol [Tenormin] 50 mg PO DAILY - Plan Plan:: #. Alcohol abuse with intoxication Patient has been a chronic alcoholic. Recently increased amount of alcohol intake about 3-4 weeks ago. Drinks more than 2 gallons of vodka daily. Expresses intention to quit #. Alcohol withdrawal The patient is tremulous and anxious His blood pressure is also elevated likely due to alcohol withdrawal #. Elevated blood pressure He has no prior history of hypertension This is likely because of alcohol withdrawal #. Hypokalemia Likely due to alcohol abuse and decreased oral intake Replaced #. Hypomagnesemia Likely due to decreased oral intake. Related to alcohol abuse Replaced #. Tobacco use disorder She is an active smoker. #. Diarrhea Possibly due to chronic pancreatitis Serum lipase was normal Will like to rule out C. difficile colitis Plan: patient is still diaphoretic He still tremulous keep patient on lorazepam Change lorazepam to every fall was intravenous when necessary Increase atenolol to 50 mg daily Start patient on amlodipine 5 mg daily Close hemodynamic monitoring Patient's medical chart was reviewed. Discussed with the emergency room provide
[2017-08-06] MEDS: Atenolol 50 MG Tab PO SCH (09:30)
[2017-08-06] MEDS: Check Patch **NICOTINE TRDERM SCH (09:40)
[2017-08-06] MEDS ORDERED: NS + KCl 20mEq/L 1,000 ML IV SCH (12:45)
[2017-08-06] MEDS: amLODIPine 5 MG Tab PO SCH (13:19)
[2017-08-06] MEDS: cloNIDine 0.1 MG Tab PO PRN (20:10)
[2017-08-07] MEDS: cloNIDine 0.1 MG Tab PO PRN (03:00)
[2017-08-07] MEDS: LORazepam 2 MG/ML Syringe IVPUSH PRN ×2 (03:01→08:03)
[2017-08-07] MEDS: Pantoprazole 40 MG Vial IVPUSH SCH ×2 (03:03→08:01)
[2017-08-07 07:46] VITALS: BP 144/87
[2017-08-07] MEDS: amLODIPine 5 MG Tab PO SCH (08:01)
[2017-08-07] MEDS: Atenolol 50 MG Tab PO SCH (08:01)
[2017-08-07] MEDS: Nicotine 21 MG/24 Hr Patch TRDERM SCH (08:01)
[2017-08-07] MEDS: Enoxaparin 40 MG/0.4 ML Syringe SUBCUT SCH (08:01)
[2017-08-07] MEDS: Check Patch **NICOTINE TRDERM SCH (08:35)
--- NOTE | 2017-08-07 10:28 | PCM.DCSUM1 ---
Discharge Summary - Hospital Course Free Text/Narrative:: The patient presented with complaint of tremors and anxiety. He is a chronic alcoholic for several years but recently increased the amount of alcohol intake. He drinks more than 2 gallons of vodka daily. He expressed intention to quit alcohol use. Indicated that he was having intermittent nausea. Also complained of vomiting and epigastric pain. He got admitted to the hospital with diagnosis of alcohol withdrawal and intoxication. He was started on alcohol withdrawal protocol, [facility] protocol #. Alcohol abuse with intoxication Patient has been a chronic alcoholic.t #. Alcohol withdrawal The patient was tremulous and anxious His blood pressure was also elevated likely due to alcohol withdrawal #. Elevated blood pressure He has no prior history of hypertension This is likely because of alcohol withdrawal #. Hypokalemia Likely due to alcohol abuse and decreased oral intake Replaced #. Hypomagnesemia Likely due to decreased oral intake. Related to alcohol abuse Replaced #. Tobacco use disorder She is an active smoker. #. Diarrhea Possibly due to chronic pancreatitis Serum lipase was normal Resolved - Discharge Data Discharge Date: 08/07/17 Discharge Disposition: Home, Self-Care 01 Condition: Good - Patient Instructions Activity: As Tolerated Driving: Do Not Drive Showering/Bathing: May Shower Notify Provider of: Fever, Nausea and/or Vomiting Other/Special Instructions: Follow-up with primary care provider in one week - Discharge Plan Prescriptions/Med Rec: Atenolol [Tenormin] 50 mg PO DAILY #30 tablet LORazepam [Ativan] 1 mg PO Q8H PRN #10 tab PRN Reason: anxiety Omeprazole [priLOSEC OTC] 20 mg PO DAILY #15 tab.sr Home Medications: Home Meds Atenolol [Tenormin] 50 mg PO DAILY #30 tablet 08/07/17 [Rx] LORazepam [Ativan] 1 mg PO Q8H PRN #10 tab 08/07/17 [Rx] Omeprazole [priLOSEC OTC] 20 mg PO DAILY #15 tab.sr 08/07/17 [Rx] Patient Handouts: Alcohol Use Disorder, Lorazepam tablets, Atenolol tablets, Omeprazole tablets (OTC) Referrals: PCP,None [Primary Care Provider] - - General Info Date of Service: 08/07/17 - Review of Systems Pulmonary: Reports: No Symptoms Gastrointestinal: Reports: No Symptoms Musculoskeletal: Reports: No Symptoms Psychiatric: Reports: Anxiety - Patient Data Vitals - Most Recent: Last Vital Signs Temp 37.0 C 08/07/17 07:45 Pulse 58 L 08/07/17 08:01 Resp 20 08/07/17 07:45 BP 144/87 H 08/07/17 08:01 Pulse Ox 98 08/07/17 07:45 Weight - Most Recent: 104.689 kg I&O - Last 24 hours: Intake & Output 08/06/17 08/07/17 08/07/17 22:59 06:59 14:59 Intake Total 250 1393 440 Balance 250 1393 440 Med Orders - Current: Current Medications Amlodipine Besylate (Norvasc) 5 mg PO DAILY [facility] Last Admin: 08/07/17 08:01 Dose: 5 mg Atenolol (Tenormin) 50 mg PO DAILY [facility] Last Admin: 08/07/17 08:01 Dose: 50 mg Clonidine HCl (Catapres) 0.1 mg PO Q4HR PRN PRN Reason: systolic>160, diastolic >95 Last Admin: 08/07/17 03:00 Dose: 0.1 mg Enoxaparin Sodium (Lovenox) 40 mg SUBCUT DAILY [facility] Last Admin: 08/07/17 08:01 Dose: 40 mg Potassium Chloride/Sodium Chloride (Normal Saline With 20 Meq Kcl) 1,000 mls @ 50 mls/hr IV ASDIRECTED [facility] Last Admin: 08/06/17 14:17 Dose: 50 mls/hr Lorazepam (Ativan) 2 mg IVPUSH ASDIRECTED PRN; Protocol PRN Reason: Withdrawal Symptoms Last Admin: 08/07/17 08:03 Dose: 2 mg Miscellaneous Information (Check Patch) 1 ea TRDERM DAILY [facility] Last Admin: 08/07/17 08:35 Dose: Not Given Nicotine (Habitrol) 21 mg TRDERM DAILY [facility] Last Admin: 08/07/17 08:01 Dose: 21 mg Ondansetron HCl (Zofran) 4 mg IVPUSH Q6H PRN PRN Reason: Nausea/Vomiting Last Admin: 08/06/17 20:10 Dose: 4 mg Oxycodone HCl (Oxycodone) 5 mg PO Q8H PRN PRN Reason: Pain Last Admin: 08/04/17 15:38 Dose: 5 mg Pantoprazole Sodium (Protonix Iv) 40 mg IVPUSH Q12HR [facility] Last Admin: 08/07/17 08:01 Dose: 40 mg Discontinued Medications Amlodipine Besylate (Norvasc) 5 mg PO DAILY [facility] Last Admin: 08/06/17 10:57 Dose: Not Given Amlodipine Besylate (Norvasc) 5 mg PO DAILY [facility] Atenolol (Tenormin) 25 mg PO DAILY [facility] Last Admin: 08/06/17 07:41 Dose: 25 mg Atenolol (Tenormin) 25 mg PO ONETIME ONE Stop: 08/05/17 19:33 Last Admin: 08/05/17 19:50 Dose: 25 mg Multivitamins/Minerals 10 ml/Folic Acid 1 mg/ Thiamine HCl 100 mg/ Lactated Ringer's 1,011.2 mls @ 999 mls/hr IV ONETIME ONE Stop: 08/04/17 14:15 Last Admin: 08/04/17 13:38 Dose: 999 mls/hr Sodium Chloride (Normal Saline) 1,000 mls @ 125 mls/hr IV ASDIRECTED [facility] Last Infusion: 08/05/17 09:32 Dose: 100 mls/hr Magnesium Sulfate 2 gm/ Premix 50 mls @ 25 mls/hr IV ONETIME ONE Stop: 08/04/17 19:30 Last Admin: 08/04/17 17:58 Dose: 25 mls/hr Potassium Chloride 20 meq/ (Premix) 100 mls @ 50 mls/hr IV ONETIME ONE Stop: 08/04/17 19:30 Last Admin: 08/04/17 23:50 Dose: Not Given Potassium Chloride 10 meq/ (Premix) 0 mls @ 100 mls/hr IV Q1H [facility] Stop: 08/04/17 18:38 Last Admin: 08/04/17 23:06 Dose: Not Given Potassium Chloride 10 meq/ (Premix) 100 mls @ 100 mls/hr IV ONETIME ONE Stop: 08/04/17 23:59 Last Infusion: 08/05/17 00:50 Dose: Infused Potassium Chloride/Sodium Chloride (Normal Saline With 20 Meq Kcl) 1,000 mls @ 100 mls/hr IV ASDIRECTED [facility] Last Infusion: 08/06/17 14:16 Dose: Infused Lorazepam (Ativan) 1 mg IVPUSH ONETIME ONE Stop: 08/04/17 13:16 Last Admin: 08/04/17 13:36 Dose: 1 mg Lorazepam (Ativan) 1 mg IVPUSH Q2H PRN PRN Reason: Tremors and anxiety Miscellaneous Information (Check Patch) 1 ea TRDERM DAILY [facility] Miscellaneous Information (Check Patch) 1 ea TRDERM BEDTIME [facility] Last Admin: 08/04/17 21:52 Dose: 1 ea Nicotine (Habitrol) 21 mg TRDERM DAILY [facility] Nicotine (Habitrol) 21 mg TRDERM BEDTIME [facility] Last Admin: 08/04/17 21:46 Dose: 21 mg - Exam General: Reports: Alert, Oriented, Cooperative Neck: Reports: Supple Lungs: Reports: Clear to Auscultation Cardiovascular: Reports: Regular Rate, Regular Rhythm GI/Abdominal Exam: Soft, Non-Tender Extremities: Normal Inspection *Q Meaningful Use (DIS) - VTE *Q VTE Criteria *Q: - Stroke *Q Stroke Criteria *Q: - AMI *Q AMI Criteria *Q:
== END 2017-08-07 10:30 | disposition home or self-care (01) ==
LOC: DL.ED 12:55 → DL.MS 14:26 → UNDOADMOB 14:33 → DL.MS 14:33
PROVIDERS: ADMIT Hospitalist; ATTEND Hospitalist
DX: F10.129 Alcohol abuse with intoxication, unspecified (principal); I10 Essential (primary) hypertension; E87.6 Hypokalemia; E83.42 Hypomagnesemia; K21.9 Gastro-esophageal reflux disease without esophagitis; Z79.899 Other long term (current) drug therapy; Z88.1 Allergy status to other antibiotic agents; Z72.0 Tobacco use
CPT/HCPCS: 36415; 70450; 80048; 80053; 80076; 80305; 81001; 82150; 82272; 83690; 83735; 84100; 85025; 85027; 87493; 96361; 96365; 96366; 96367; 96372; 96375; 96376; 99285; A9270-GY; C9113; G0378; G0480; J1650; J2060; J2405; J3411; J3475; J3480; J3490; J7030; J7120